=== PATIENT | male | born 1965 | race African-American/Black ===

== ENCOUNTER 2024-10-25 18:30 | Inpatient (IN) | payer SELFPAY ==
[2024-10-25] VITALS (9 sets, daily range): BP systolic 102–121; BP diastolic 63–92; PULSE 66–84; RESP 12–20; TEMP 35.61396–35.6396; O2SAT 98
[~2024-10-25] VITALS: Ht 182.9 cm; Wt 170.1 kg
[2024-10-25] MEDS: HEPARIN 5000 UNITS/ML VIAL IV ONE (18:51)
[2024-10-25] MEDS: ASPIRIN 325MG TABLET PO ONE (19:02)
[2024-10-25] MEDS: SODIUM CHLORIDE 0.9% 500 ML IV ONE (19:02)
[2024-10-25 19:34] LABS: BASOPHILS % 0.2 % (0.0-2.0); EOSINOPHILS % 0.7 % (0.0-5.0); HEMATOCRIT. 40.5 % (42.0-52.0); HEMOGLOBIN. 13.2 g/dL (14.0-18.0); LYMPHOCYTES % 12.8 % (20.0-50.0); MEAN CORPUSCULAR HEMOGLOBIN 30.2 pg (28.0-32.0); MEAN CORPUSCULAR HGB CONC 32.5 g/dL (31.0-37.0); MEAN PLATELET VOLUME 8.8 fl (7.4-10.4); MONOCYTES % 5.7 % (2.0-8.0); NEUTROPHILS % 80.6 % (40.0-76.0); PLATELET 194 x1000/uL (130-400); RED BLOOD CELL COUNT 4.35 mill/uL (4.7-6.1); RED CELL DISTRIBUTION WIDTH 15.5 % (11.6-14.6)
[2024-10-25 19:42] LABS: CHLORIDE 109 mEq/L (98-107); SODIUM 141 mEq/L (136-145)
[2024-10-25 19:43] LABS: CALCIUM 8.8 mg/dL (8.7-10.4); CARBON DIOXIDE 24 mEq/L (21-32)
[2024-10-25 19:48] LABS: CREATININE 1.4 mg/dL (0.6-1.3); GLUCOSE 138 mg/dL (70-105); UREA NITROGEN BLOOD 13 mg/dL (9-23)
[2024-10-25 19:49] LABS: TROPONIN I HIGH SENSITIVITY 14 ng/L (3.0-53)
[2024-10-25] MEDS ORDERED: FENTANYL CITRATE/PF 50MCG/ML 2ML VIAL ONE (20:22)
[2024-10-25] MEDS ORDERED: MIDAZOLAM HCL 2 MG/2 ML VIAL ONE (20:22)
[2024-10-25] MEDS ORDERED: ATROPINE SULFATE 1MG/10ML SYR ONE (20:28)
[2024-10-25] MEDS ORDERED: ONDANSETRON HCL 4MG/2ML INJ ONE (20:28)
[2024-10-25] MEDS ORDERED: TICAGRELOR 90 MG TABLET PO ONE (20:28)
[2024-10-25] MEDS ORDERED: LIDOCAINE HCL 1% 20ML VIAL ONE (20:28)
[2024-10-25] MEDS ORDERED: IODIXANOL 320 MG/ML 150ML BOTTLE IV ONE (20:28)
[2024-10-25] MEDS ORDERED: MORPHINE SULFATE 2 MG/ML INJ (NOT FOR IM USE) IV PRN ×2 (20:30)
[2024-10-25] MEDS ORDERED: ASPIRIN 81MG TABLET PO NR (20:30)
[2024-10-25] MEDS ORDERED: ACETAMINOPHEN 325MG TABLET PO PRN ×2 (20:30→22:30)
[2024-10-25] MEDS ORDERED: ONDANSETRON HCL 4MG/2ML INJ IV PRN ×2 (20:30→22:30)
[2024-10-25] MEDS ORDERED: ATROPINE SULFATE 1MG/10ML SYR IV PRN (20:30)
[2024-10-25] MEDS ORDERED: NITROGLYCERIN 50MG PREMIX 250 ML IV PRN (20:30)
[2024-10-25] MEDS ORDERED: EPTIFIBATIDE 2 MG/ML 10ML VIAL IV ONE (20:35)
[2024-10-25] MEDS ORDERED: IPRATROPIUM/ALBUTEROL 0.5-3(2.5)MG/3ML NEB HHN PRN (22:30)
[2024-10-25] MEDS ORDERED: GUAIFENESIN 200MG/10ML SUGAR FREE UDC PO PRN (22:30)
[2024-10-25] MEDS ORDERED: MAGNESIUM/ALUMINUM HYDROXIDE/SIMETHICONE 30ML UDC PO PRN (22:30)
[2024-10-25] MEDS ORDERED: DOCUSATE SODIUM 100MG CAPSULE PO PRN (22:30)
[2024-10-25] MEDS: ATORVASTATIN CALCIUM 40MG TABLET PO SCH (23:23)
[2024-10-25] MEDS: ASPIRIN 81MG EC TABLET PO SCH (23:23)
[2024-10-25] MEDS: TICAGRELOR 90 MG TABLET PO SCH (23:23)
[2024-10-25] MEDS: SODIUM CHLORIDE 0.45% 1,000 ML IV SCH (23:23)
[2024-10-26] VITALS (37 sets, daily range): BP systolic 41–141; BP diastolic 32–102; PULSE 49–94; RESP 11–25; TEMP 36–37.2; O2SAT 95–99
[2024-10-26] LABS: TROPONIN I HIGH SENSITIVITY 3234 ng/L (3.0-53)
[2024-10-26] MEDS: PANTOPRAZOLE SODIUM 40 MG/VIAL IV SCH (00:46)
[2024-10-26 06:19] LABS: BASOPHILS % 0.2 % (0.0-2.0); EOSINOPHILS % 0.4 % (0.0-5.0); LYMPHOCYTES % 16.6 % (20.0-50.0); MEAN CORPUSCULAR HEMOGLOBIN 30.7 pg (28.0-32.0); MEAN CORPUSCULAR HGB CONC 33.3 g/dL (31.0-37.0); MEAN CORPUSCULAR VOLUME 92.3 fL (80.0-94.0); MEAN PLATELET VOLUME 8.5 fl (7.4-10.4); NEUTROPHILS % 75.8 % (40.0-76.0); PLATELET 202 x1000/uL (130-400); RED BLOOD CELL COUNT 3.89 mill/uL (4.7-6.1); RED CELL DISTRIBUTION WIDTH 15.5 % (11.6-14.6); WHITE BLOOD COUNT 10.9 x1000/uL (4.5-11.0)
[2024-10-26 06:34] LABS: CHLORIDE 108 mEq/L (98-107); SODIUM 142 mEq/L (136-145)
[2024-10-26 06:35] LABS: CALCIUM 8.6 mg/dL (8.7-10.4); CARBON DIOXIDE 25 mEq/L (21-32)
[2024-10-26 06:40] LABS: CREATININE 1.2 mg/dL (0.6-1.3); GLUCOSE 102 mg/dL (70-105); TRIGLYCERIDE 127 mg/dL (0-150); UREA NITROGEN BLOOD 12 mg/dL (9-23)
[2024-10-26 06:41] LABS: LDL CHOLESTEROL 126 mg/dL (5-100); T4 FREE 1.28 ng/dL (0.89-1.76)
[2024-10-26 06:42] LABS: CHOLESTEROL 168 mg/dL (<200); HDL CHOLESTEROL 33 mg/dL (>55); THYROID STIMULATING HORMONE 1.82 uIU/mL (0.55-4.78)
[2024-10-26] MEDS: ENOXAPARIN 40MG/0.4ML SYR SUBCUT SCH (08:47)
[2024-10-26 10:54] LABS: TROPONIN I HIGH SENSITIVITY 13637 ng/L (3.0-53)
[2024-10-26] MEDS: CLOPIDOGREL 75MG TABLET PO NR (11:53)
[2024-10-27] VITALS: BP 116/77; PULSE 94; RESP 18; TEMP 36.8; O2SAT 98
[2024-10-27 04:00] VITALS: BP 98/57; PULSE 85; RESP 20; TEMP 37.1; O2SAT 98
[2024-10-27 08:00] VITALS: BP 102/60; PULSE 69; RESP 18; TEMP 36.3; O2SAT 99
[2024-10-27] MEDS: CLOPIDOGREL 75MG TABLET PO SCH (09:30)
[2024-10-27 10:49] LABS: CARBON DIOXIDE 27 mEq/L (21-32); CHLORIDE 109 mEq/L (98-107); POTASSIUM 3.8 mEq/L (3.5-5.1); SODIUM 142 mEq/L (136-145)
[2024-10-27 10:50] LABS: CALCIUM 8.8 mg/dL (8.7-10.4)
[2024-10-27 10:54] LABS: CREATININE 1.4 mg/dL (0.6-1.3)
[2024-10-27 10:55] LABS: GLUCOSE 116 mg/dL (70-105); UREA NITROGEN BLOOD 15 mg/dL (9-23)
[2024-10-27 10:58] LABS: BASOPHILS % 0.2 % (0.0-2.0); EOSINOPHILS % 1.3 % (0.0-5.0); HEMATOCRIT. 37.7 % (42.0-52.0); HEMOGLOBIN. 12.4 g/dL (14.0-18.0); LYMPHOCYTES % 17.5 % (20.0-50.0); MEAN CORPUSCULAR HEMOGLOBIN 30.5 pg (28.0-32.0); MEAN CORPUSCULAR VOLUME 92.4 fL (80.0-94.0); MONOCYTES % 7.5 % (2.0-8.0); NEUTROPHILS % 73.5 % (40.0-76.0); PLATELET 174 x1000/uL (130-400); RED BLOOD CELL COUNT 4.08 mill/uL (4.7-6.1); RED CELL DISTRIBUTION WIDTH 15.7 % (11.6-14.6); WHITE BLOOD COUNT 9.3 x1000/uL (4.5-11.0)
[2024-10-27 12:00] VITALS: BP 127/78; PULSE 74; RESP 20; TEMP 36.5; O2SAT 100
[2024-10-27] MEDS ORDERED: ASPI-1406 PO (15:41)
[2024-10-27] MEDS ORDERED: LIP40 PO (15:41)
[2024-10-27] MEDS ORDERED: CLOP-31 PO (15:41)
[2024-10-27 16:00] VITALS: BP 117/71; PULSE 79; RESP 18; TEMP 36.6; O2SAT 100
[2024-10-27 18:37] VITALS: BP 135/69; PULSE 77; TEMP 98.2; O2SAT 98
[2024-10-27 20:59] LABS: TROPONIN I HIGH SENSITIVITY 8010 ng/L (3.0-53)
== END 2024-10-27 20:22 | disposition home or self-care (01) | DRG 174 ==
LOC: ER 18:30 → CVICU 19:33 → EDBEDREQ 19:34 → 7WST 10-26 13:17
PROVIDERS: ADMIT Internal Medicine; ATTEND Internal Medicine
PROC: B211YZZ Fluoroscopy of Multiple Coronary Arteries using Other Contrast (ICD-10-PCS; principal; 2024-10-25)
PROC: 027034Z Dilation of Coronary Artery, One Artery with Drug-eluting Intraluminal Device, Percutaneous Approach (ICD-10-PCS; 2024-10-25)
PROC: B215YZZ Fluoroscopy of Left Heart using Other Contrast (ICD-10-PCS; 2024-10-25)
PROC: B41FYZZ Fluoroscopy of Right Lower Extremity Arteries using Other Contrast (ICD-10-PCS; 2024-10-25)
PROC: 02C03ZZ Extirpation of Matter from Coronary Artery, One Artery, Percutaneous Approach (ICD-10-PCS; 2024-10-25)
DX: I21.19 ST elevation (STEMI) myocardial infarction involving other coronary artery of inferior wall (principal); E11.9 Type 2 diabetes mellitus without complications; I21.11 ST elevation (STEMI) myocardial infarction involving right coronary artery; E66.01 Morbid (severe) obesity due to excess calories; I10 Essential (primary) hypertension; Z95.5 Presence of coronary angioplasty implant and graft; Z68.41 Body mass index [BMI] 40.0-44.9, adult; Z79.82 Long term (current) use of aspirin; Z87.891 Personal history of nicotine dependence; Z79.02 Long term (current) use of antithrombotics/antiplatelets; Z79.4 Long term (current) use of insulin
CPT/HCPCS: 36415; 71045; 80048; 80061; 83036; 83735; 84439; 84443; 84484; 85025; 86850; 86900; 92941; 93005; 93306; 93458; 93970; 99291; A4606; C1725; C1757; C1769; C1874; C1887; C1893; J0461; J1327; J1644; J1650; J2250; J2405; J2470; J3010; J3490; J7040; Q9967; J8499

== ENCOUNTER 2024-12-07 07:39 | Emergency (ER) | payer SELFPAY ==
[~2024-12-07] VITALS: Ht 185.4 cm; Wt 155.0 kg
[~2024-12-07 07:39] MED LIST: ASPI-1406 PO; CLOP-31 PO; LIP40 PO
[2024-12-07 07:42] VITALS: PULSE 89; RESP 20; O2SAT 98
[2024-12-07 07:47] VITALS: BP 132/61; TEMP 36.9; O2SAT 100
[2024-12-07 08:48] LABS: CHLORIDE 107 mEq/L (98-107); POTASSIUM 4.1 mEq/L (3.5-5.1); SODIUM 144 mEq/L (136-145)
[2024-12-07 08:49] LABS: CARBON DIOXIDE 29 mEq/L (21-32)
[2024-12-07 08:50] LABS: CALCIUM 8.9 mg/dL (8.7-10.4)
[2024-12-07 08:54] LABS: CREATININE 1.3 mg/dL (0.6-1.3); GLUCOSE 100 mg/dL (70-105)
[2024-12-07 08:55] LABS: TROPONIN I HIGH SENSITIVITY 5 ng/L (3.0-53); UREA NITROGEN BLOOD 14 mg/dL (9-23)
[2024-12-07 09:01] LABS: BASOPHILS % 0.4 % (0.0-2.0); EOSINOPHILS % 2.2 % (0.0-5.0); HEMATOCRIT. 40.6 % (42.0-52.0); HEMOGLOBIN. 13.2 g/dL (14.0-18.0); LYMPHOCYTES % 17.1 % (20.0-50.0); MEAN CORPUSCULAR HEMOGLOBIN 29.8 pg (28.0-32.0); MEAN CORPUSCULAR HGB CONC 32.5 g/dL (31.0-37.0); MEAN CORPUSCULAR VOLUME 91.7 fL (80.0-94.0); MEAN PLATELET VOLUME 9.4 fl (7.4-10.4); MONOCYTES % 8.8 % (2.0-8.0); NEUTROPHILS % 71.5 % (40.0-76.0); PLATELET 196 x1000/uL (130-400); RED BLOOD CELL COUNT 4.43 mill/uL (4.7-6.1); RED CELL DISTRIBUTION WIDTH 15.4 % (11.6-14.6); WHITE BLOOD COUNT 8.7 x1000/uL (4.5-11.0)
== END 2024-12-07 09:22 | disposition home or self-care (01) ==
LOC: ER 07:39
DX: R06.02 Shortness of breath (principal); I10 Essential (primary) hypertension; I25.2 Old myocardial infarction; E66.01 Morbid (severe) obesity due to excess calories; Z79.899 Other long term (current) drug therapy; Z95.5 Presence of coronary angioplasty implant and graft; Z79.82 Long term (current) use of aspirin; Z79.02 Long term (current) use of antithrombotics/antiplatelets
CPT/HCPCS: 36415; 71045; 80048; 84484; 85025; 93005; 99285

== ENCOUNTER 2025-06-29 20:46 | Emergency (ER) | payer OTHER ==
[~2025-06-29] VITALS: Ht 185.4 cm; Wt 162.1 kg
[2025-06-29 20:50] VITALS: TEMP 37; O2SAT 99
[2025-06-29 21:19] LABS: CLARITY URINE CLEAR (CLEAR); COLOR URINE YELLOW (YELLOW); GLUCOSE URINE NEGATIVE (NEGATIVE); KETONES URINE TRACE (NEGATIVE); LEUKOCYTE ESTERASE URINE 2+ (NEGATIVE); NITRITE URINE POSITIVE (NEGATIVE); OCCULT BLOOD URINE NEGATIVE (NEGATIVE); PH URINE 6.5 (4.5-8.0); PROTEIN URINE NEGATIVE (NEGATIVE); SPECIFIC GRAVITY URINE 1.024 (1.005-1.030); UROBILINOGEN URINE 2.0 E.U./dL (0.2-1.0)
[2025-06-29 21:36] LABS: BACTERIA URINE 3+; RBC URINE 0-2 /hpf (0-2); SQUAMOUS EPITHELIAL CELL URINE FEW /lpf (RARE/1+); WBC URINE 25-50 /hpf (0-2)
[2025-06-29] MEDS ORDERED: LEVO-65 MT (22:15)
[2025-06-29] MEDS: CEFTRIAXONE SODIUM 500MG VIAL IM ONE (23:22)
[2025-06-29 23:24] VITALS: BP 136/92; PULSE 89; RESP 20; O2SAT 99
== END 2025-06-29 23:25 | disposition home or self-care (01) ==
LOC: ER 20:46
DX: N45.3 Epididymo-orchitis (principal); F10.90 Alcohol use, unspecified, uncomplicated; Z79.02 Long term (current) use of antithrombotics/antiplatelets; Z79.82 Long term (current) use of aspirin; Z79.899 Other long term (current) drug therapy; Y90.9 Presence of alcohol in blood, level not specified
CPT/HCPCS: 99285; 93976; 81003; 87086; 76870; 96372; J0696